=== PATIENT | female | born 1960 ===

== ENCOUNTER 2019-01-10 06:09 | Day surgery (SDC) | payer OTHER ==
[~2019-01-10 06:09] MED LIST: GABAPENTIN800 MG PO; LISINOPRIL20 MG PO; METFORMIN HCL500 M2 PO; MIRAPEX0.5 MG PO; PAMELOR75 MG PO; PRAVASTATIN SOD40 MG PO; TRAMADOL HCL50 MG PO
[2019-01-10] MEDS ORDERED: IBUPROFEN400 MG PO (11:23)
== END 2019-01-10 15:15 | disposition home or self-care (01) ==
LOC: CIR.AMB 06:09
DX: N84.0 Polyp of corpus uteri (principal)

== ENCOUNTER 2019-11-24 10:30 | Inpatient (IN) | payer OTHER ==
[~2019-11-24] VITALS: Ht 162.6 cm; Wt 106.1 kg
[~2019-11-24 10:30] MED LIST changes: +IBUPROFEN400 MG PO
[2020-01-02] MEDS ORDERED: MONTELUKAST SOD10 MG (09:49)
[2020-01-02] MEDS ORDERED: PANTOPRAZOLE SO40 MG (09:49)
[2020-01-02] MEDS ORDERED: HYDRODIURIL12.5 MG (09:50)
[2020-01-04] MEDS ORDERED: LOVENOX40 MG/0.4 SUBCUTANEO (07:26)
[2020-01-04] MEDS ORDERED: LISINOPRIL20 MG PO (07:26)
[2020-01-04] MEDS ORDERED: CIPRO500 MG PO (07:26)
[2020-01-04] MEDS ORDERED: ULTRAM50 MG PO (07:26)
[2020-01-04] MEDS ORDERED: FORTAMET500 MG PO (07:26)
== END 2020-01-04 08:55 | disposition home or self-care (01) | DRG 743 ==
LOC: OB/GYN 11-28 07:00 → O/R 11-28 10:30 → OB/GYN 12-26 10:30 → O/R 01-02 06:33 → OB/GYN 01-02 10:30
PROVIDERS: ADMIT Obstetrics & Gynecology Gynecology; ATTEND Obstetrics & Gynecology Gynecology
PROC: 0UT70ZZ Resection of Bilateral Fallopian Tubes, Open Approach (ICD-10-PCS; 2020-01-02)
PROC: 0UT20ZZ Resection of Bilateral Ovaries, Open Approach (ICD-10-PCS; 2020-01-02)
PROC: 0UT90ZZ Resection of Uterus, Open Approach (ICD-10-PCS; principal; 2020-01-02 11:45)
DX: D25.1 Intramural leiomyoma of uterus (principal); N80.0 Endometriosis of uterus; N84.0 Polyp of corpus uteri; N83.312 Acquired atrophy of left ovary; N83.311 Acquired atrophy of right ovary